=== PATIENT | female | born 1975 | race African-American/Black ===

== ENCOUNTER 2017-03-07 13:59 | Emergency (ER) | payer BC ==
--- NOTE | 2017-03-07 16:00 | ER Document Report ---
HPI - HPI Patient complains to provider of: yuliana Pain Level: 4 Context: 41 yo female c/o swelling to right lower eye lid and right side of face x 3-4 days no eyeball pain, no vision change, no drainage or redness to eyeball Associated Symptoms: None Exacerbated by: Denies Relieved by: Denies Similar symptoms previously: No Recently seen / treated by doctor: No - ROS Systems Reviewed and Negative: Yes All other systems reviewed and negative - CARDIOVASCULAR Cardiovascular: DENIES: Chest pain - REPRODUCTIVE Reproductive: DENIES: : - DERM Skin Color: Normal Past Medical History - General Information source: Patient - Social History Smoking Status: Never Smoker Chew tobacco use (# tins/day): No Frequency of alcohol use: None Drug Abuse: None Lives with: Family Family History: Reviewed & Not Pertinent Patient has suicidal ideation: No Patient has homicidal ideation: No - Medical History Medical History: Negative Renal/ Medical History: Denies: Hx Ectopic , Hx Peritoneal Dialysis Past Surgical History: Reports: Hx Tubal Ligation - Immunizations Hx Diphtheria, Pertussis, Tetanus Vaccination: No Vertical Provider Document - CONSTITUTIONAL Agree With Documented VS: Yes - BP elevated Exam Limitations: No Limitations General Appearance: WD/WN, Obese - INFECTION CONTROL TRAVEL OUTSIDE OF THE [place] IN LAST 30 DAYS: No - HEENT HEENT: Atraumatic, PERRLA - + edema and firm nodule to right lower lid with focal tenderness Notes: + preauricular tenderness - NECK Neck: Normal Inspection, Lymphadenopathy-Right - anterior cercvical - RESPIRATORY Respiratory: Breath Sounds Normal, No Respiratory Distress O2 Sat by Pulse Oximetry: 99 - CARDIOVASCULAR Cardiovascular: Regular Rate, Regular Rhythm - MUSCULOSKELETAL/EXTREMETIES Musculoskeletal/Extremeties: BBEE DENNIS - NEURO Level of Consciousness: Awake, Alert, Appropriate - DERM Integumentary: Warm, Dry Course - Re-evaluation Re-evalutation: 03/07/17 16:10 BP is elevated today. no hx/o HTN per patient. may be related to discomfort and stress of ER visit. pt denies any symptoms related to hypertension or hypertensive crisis. pt instructed to keep blood pressure diary and follow up with primary care. pt is agreeable with plan and stable for discharge - Vital Signs Vital signs: Temp Pulse Resp BP Pulse Ox 99.2 F 84 18 162/84 H 99 03/07/17 14:09 03/07/17 14:03/07/17 14:03/07/17 14:03/07/17 14:09 Discharge - Discharge Clinical Impression: Chalazion Qualifiers: Laterality: right Eyelid: lower Qualified Code(s): H00.12 - Chalazion right lower eyelid Condition: Stable Disposition: HOME, SELF-CARE Instructions: Antibiotic Therapy ([facility]), Eyedrop Use ([facility]), Chalazion ([facility]) Additional Instructions: continue warm compresses medications as prescribed if no improvement in 10 days, follow up with opthomology for further evaluation and treatment, sooner if worse your blood pressure is elevated today please keep blood pressure diary. if BP remains elevated, follow up with primary care for further evaluation Prescriptions: Cephalexin Monohydrate [Keflex 500 mg Capsule] 500 mg PO QID #20 capsule Erythromycin Base [Erythromycin] 1 applic OD TID #1 tub Forms: Elevated Blood Pressure
[2017-03-07 16:49] VITALS: BP 150/82
== END 2017-03-07 16:44 | disposition home or self-care (01) ==
LOC: ER 13:59
DX: H00.12 Chalazion right lower eyelid (principal); R22.0 Localized swelling, mass and lump, head; H57.11 Ocular pain, right eye
CPT/HCPCS: 99283